=== PATIENT | male | born 1990 | race Caucasian/White ===

== ENCOUNTER 2020-08-16 10:20 | Outpatient (CLI) | payer BC | END 2020-08-16 10:21 | disposition home or self-care (01) | LOC: BICULT 10:20 | PROVIDERS: ATTEND Family Medicine | DX: R10.84 Generalized abdominal pain (principal) | CPT/HCPCS: 76870; 93975; 93976 ==

== ENCOUNTER 2021-05-06 12:06 | Outpatient (CLI) | payer BC | END 2021-05-06 12:07 | disposition home or self-care (01) | LOC: BICRAD 12:06 | PROVIDERS: ATTEND Family Medicine | DX: M54.9 Dorsalgia, unspecified (principal); M41.9 Scoliosis, unspecified | CPT/HCPCS: 72072 ==